=== PATIENT | male | born 1975 | race American Indian/Alaskan Native ===

== ENCOUNTER 2017-09-06 11:27 | Emergency (ER) | payer SELFPAY ==
[2017-09-06 11:38] VITALS: BP 144/83
[2017-09-06] MEDS ORDERED: PROVENTIL IH ONE ×3 (11:43→11:46)
[2017-09-06] MEDS ORDERED: ATROVENT IH ONE ×2 (11:46)
--- NOTE | 2017-09-06 11:52 | Emergency Department Report ---
Chief Complaint: Adult Asthma Stated Complaint: WHEEZING , CHEST PAIN Time Seen by Provider: 09/06/17 11:46 - HPI History of Present Illness: Patient here reports that he has asthma attack and has been using his friend inhaler but he doesn't feel better. Patient's complaint of chest tightness and wheezing for one day. He said he is having chest pain so reports that it is just a dozen 10. Reports shortness of breath. Patient has albuterol in his hand. Patient is crying continuously and when asked he said he doesn't know what's wrong. His O2 sat is 94% on room air. Denies any suicide or homicide ideation. Denies any history of heart disease but he said he uses recreational drugs that he has a history of asthma and bronchitis. He does not have a primary care doctor. - ROS Review of Systems: Systems are negative unless stated in HPI above - Exam Vital Signs: Vital Signs 09/06/17 11:34 Temperature 97.2 F L Pulse Rate 95 H Respiratory 22 Rate Blood Pressure 144/83 O2 Sat by Pulse 94 Oximetry Physical Exam: Gen.: This is a 42-year-old patient that is in mental distress and crying continuously. Psych: Anxious. Denies suicidal or homicidal ideation Lungs: Wheezes in the lung [place] with dry cough. Mild increased work of breathing. O2 sat is 94% on room air Cardiovascular: S1, S2. Regular rate rhythm. MSE screening note: Focused history and physical exam performed. Due to findings the following was ordered: ED Medical Decision Making - Medical Decision Making MDM: Patient screened by provider in triage area. Appropriate protocol initiated and patient to be seen in main ED by ED Disposition for MSE Condition: Stable
--- NOTE | 2017-09-06 13:28 | Emergency Department Report ---
ED General Adult HPI - General Chief complaint: Adult Asthma Stated complaint: WHEEZING , CHEST PAIN Time Seen by Provider: 09/06/17 11:46 Source: patient Mode of arrival: Ambulatory Limitations: No Limitations - History of Present Illness Initial comments: Patient is a 42-year-old male with past medical history of asthma who presents with shortness of breath. Patient states that he has run out of his inhaler and that because of that he has been very short of breath. Patient denies having any chest pain or any leg swelling. Patient states that his shortness of breath is moderate cold and weather change makes it worse. Patient denies any hemoptysis patient says he has been having cough with some productive sputum. He states that albuterol makes it better. - Related Data Previous Rx's Medication Instructions Recorded Last Taken Type ALBUTEROL Inhaler [ProAir HFA 2 puff IH QID PRN #1 inhalation 09/06/17 Unknown Rx Inhaler] predniSONE [Deltasone] 20 mg PO BID #10 tablet 09/06/17 Unknown Rx Allergies Allergy/AdvReac Type Severity Reaction Status Date / Time No Known Allergies Allergy Verified 07/11/16 22:34 ED Review of Systems ROS: Stated complaint: WHEEZING , CHEST PAIN Other details as noted in HPI Constitutional: denies: chills, fever Eyes: denies: eye pain, eye discharge, vision change ENT: denies: ear pain, throat pain Respiratory: SOB at rest. denies: cough, shortness of breath, wheezing Cardiovascular: denies: chest pain, palpitations Endocrine: no symptoms reported Gastrointestinal: denies: abdominal pain, nausea, diarrhea Genitourinary: denies: urgency, dysuria Musculoskeletal: denies: back pain, joint swelling, arthralgia Skin: denies: rash, lesions Neurological: denies: headache, weakness, paresthesias Psychiatric: denies: anxiety, depression Hematological/Lymphatic: denies: easy bleeding, easy bruising ED Past Medical Hx - Past Medical History Previous Medical History?: Yes Hx Psychiatric Treatment: (recreational drug use) Hx Asthma: Yes Additional medical history: bronchitis - Surgical History Past Surgical History?: Yes Additional Surgical History: ANA - Social History Smoking Status: Current Every Day Smoker Substance Use Type: Prescribed - Medications Home Medications: Home Medications Medication Instructions Recorded Confirmed Last Taken Type ALBUTEROL Inhaler [ProAir HFA 2 puff IH QID PRN #1 inhalation 09/06/17 Unknown Rx Inhaler] predniSONE [Deltasone] 20 mg PO BID #10 tablet 09/06/17 Unknown Rx ED Physical Exam - General Limitations: No Limitations General appearance: alert, in no apparent distress - Head Head exam: Present: atraumatic, normocephalic - Eye Eye exam: Present: normal appearance - ENT ENT exam: Present: mucous membranes moist - Neck Neck exam: Present: normal inspection - Respiratory Respiratory exam: Present: normal lung sounds bilaterally, wheezes (in upper right base). Absent: respiratory distress - Cardiovascular Cardiovascular Exam: Present: regular rate, normal rhythm. Absent: systolic murmur, diastolic murmur, rubs, gallop - GI/Abdominal GI/Abdominal exam: Present: soft, normal bowel sounds - Rectal Rectal exam: Present: deferred - Extremities Exam Extremities exam: Present: normal inspection - Back Exam Back exam: Present: normal inspection - Neurological Exam Neurological exam: Present: alert, oriented X3 - Psychiatric Psychiatric exam: Present: normal affect, normal mood - Skin Skin exam: Present: warm, dry, intact, normal color. Absent: rash ED Course Vital Signs 09/06/17 11:34 Temperature 97.2 F L Pulse Rate 95 H Respiratory 22 Rate Blood Pressure 144/83 O2 Sat by Pulse 94 Oximetry ED Medical Decision Making - Medical Decision Making Chief medical diagnosis: Asthma exacerbation Differential medical diagnosis: Bronchitis, COPD, allergic rhinitis I will get CBC, CMP, chest x-ray, EKG, albuterol and ipratropium breathing treatment and steroids Patient is refusing all blood work and all x-rays. Patient does not clinically need blood work or x-rays as well. His vital signs of them within the normal limits. Discussed plan with patient for discharge patient agrees to plan additional verbal discharge instructions were given also and patient home with prednisone and albuterol inhaler. Patient agrees with plan. Critical care attestation.: If time is entered above; I have spent that time in minutes in the direct care of this critically ill patient, excluding procedure time. ED Disposition Clinical Impression: SOB (shortness of breath) Asthma Qualifiers: Asthma severity: moderate Asthma persistence: unspecified Asthma complication type: uncomplicated Qualified Code(s): J45.909 - Unspecified asthma, uncomplicated Disposition: TO HOME OR SELFCARE Is pt being admited?: No Does the pt Need Aspirin: No Condition: Stable Instructions: Asthma (ED) Prescriptions: ALBUTEROL Inhaler [ProAir HFA Inhaler] 2 puff IH QID PRN #1 inhalation PRN Reason: Shortness Of Breath predniSONE [Deltasone] 20 mg PO BID #10 tablet Referrals: PRIMARY CARE, [Primary Care Provider] - 3-5 Days
== END 2017-09-06 14:17 | disposition home or self-care (01) ==
LOC: ED 11:27
DX: J45.909 Unspecified asthma, uncomplicated (principal); F17.200 Nicotine dependence, unspecified, uncomplicated
CPT/HCPCS: 99283